=== PATIENT | male | born 1950 | race Native Hawaiian/Other Pacific Islander ===

== ENCOUNTER 2017-02-22 08:53 | Day surgery (SDC) | payer OTHER | END 2017-02-22 10:25 | disposition home or self-care (01) | LOC: OR 08:53 | PROC: 08RJ3JZ Replacement of Right Lens with Synthetic Substitute, Percutaneous Approach (ICD-10-PCS; principal; 2017-02-22) | DX: H25.811 Combined forms of age-related cataract, right eye (principal) | CPT/HCPCS: 66984; V2632 ==

== ENCOUNTER 2017-03-01 08:52 | Day surgery (SDC) | payer OTHER | END 2017-03-01 11:00 | disposition home or self-care (01) | LOC: OR 08:52 | PROC: 08RK3JZ Replacement of Left Lens with Synthetic Substitute, Percutaneous Approach (ICD-10-PCS; principal; 2017-03-01) | DX: H25.812 Combined forms of age-related cataract, left eye (principal) | CPT/HCPCS: 66984; J0171; V2632 ==